=== PATIENT | male | born 1970 | race Caucasian/White ===

== ENCOUNTER 2018-04-09 21:51 | Emergency (ER) | payer OTHER ==
[2018-04-09 22:28] VITALS: BMI 29.8
--- NOTE | 2018-04-09 23:05 | PDOC ---
History of Present Illness - General Chief Complaint: Pain, Acute Stated Complaint: PAIN, ACUTE Time Seen by Provider: 04/09/18 22:45 History Source: Patient Exam Limitations: No Limitations - History of Present Illness Travel History: No Initial Comments: 04/09/18 23:58 The patient is a 47 year old male with a significant PMH of kidney stones, IDDM , and HTN who presents to the emergency department with left flank pain since 9AM. Patient states he initially felt left flank discomfort but has worsened over the course of the day. Patient notes the left flank pain worsened after eating dinner prompting him to come to the ER. Patient reports taking 3 extra strength tylenols. Patient endorses that he has been straining to urinate, and admits to hematuria and urgency. Patient states he has a kidney of left sided kidney stones which required lithotripsy. Patient notes his syptoms feel similar to his kidney stones in the past. Patient follows with Dr. Pompa, urologist. The patient denies chest pain, shortness of breath, headache and dizziness. Denies fever, chills, nausea, vomit, diarrhea and constipation. Endorses hematuria and urgency but denies frequency. Denies testicular pain Allergies: NKA Past surgical history: None reported. Social history: No reported alcohol, drug, or cigarette use. Urologist: Dr. Pompa 10 Past History - Past Medical History Allergies/Adverse Reactions: Allergies Allergy/AdvReac Type Severity Reaction Status Date / Time codeine Allergy Vomiting Verified 04/09/18 22:28 morphine Allergy Vomiting Verified 04/09/18 22:28 Home Medications: Ambulatory Orders Atorvastatin Ca [Lipitor] 10 mg PO HS 04/05/12 Insulin Pump Syringe, 1.8 ml [Fifty50 [place]] 1.7 units SQ 04/05/12 Lisinopril [Prinivil] 5 mg PO DAILY 04/05/12 Nitrofurantoin Macrocrystal [Nitrofurantoin] 100 mg PO BID #14 capsule 11/06/12 Oxycodone HCl/Acetaminophen [Percocet 5-325 mg Tablet] 1 - 2 tab PO Q6H PRN #10 tablet 11/06/12 Tamsulosin HCl 0.4 mg PO DAILY #7 cap.er.24h 11/06/12 Tamsulosin HCl [Flomax] 0.4 mg PO DAILY #7 capsule 04/10/18 Anemia: No Asthma: No Cancer: No Cardiac Disorders: No CVA: No COPD: No CHF: No Dementia: No Diabetes: Yes (IDDM) GI Disorders: No Disorders: No HTN: Yes Hypercholesterolemia: Yes Liver Disease: No Seizures: No Thyroid Disease: No - Surgical History Abdominal Surgery: No Appendectomy: No Cardiac Surgery: No Cholecystectomy: No Lung Surgery: No Neurologic Surgery: No Orthopedic Surgery: Yes (FX LEFT HEAL WITH 4 SCREWS, L ROTATOR CUFF) - Immunization History Immunization Up to Date: No - Suicide/Smoking/Psychosocial Hx Smoking Status: No Smoking History: Never smoked Have you smoked in the past 12 months: No Number of Cigarettes Smoked Daily: 0 Information on smoking cessation initiated: No Hx Alcohol Use: No Drug/Substance Use Hx: No Substance Use Type: None Hx Substance Use Treatment: No Review of Systems - Review of Systems Able to Perform ROS?: Yes Comments:: 04/09/18 23:59 Constitutional - no reported Fever, Chills, HEENT: no reported vision changes, sore throat Respiratory: no reported cough, sob, hemoptysis Cardiac: no reported chest pain, palpitations, light headedness, leg swelling Abd/GI: +L flank pain radiating to groin no reported abd pain, nausea, vomiting , blood per rectum, melena, diarrhea : no reported dysuria, frequency, discharge Musculskelatal - no reported back pain, joint swelling skin - no reported bruising, erythema, rash neurological: no reported headache, numbness, focal weakness, tingling, ataxia, hematologic: no reported easy bruising, easy bleeding *Physical Exam - Vital Signs Last Vital Signs Temp Pulse Resp BP Pulse Ox 98.4 F 101 H 22 H 140/84 100 04/09/18 22:25 04/09/18 22:25 04/09/18 22:25 04/09/18 22:25 04/09/18 22:25 - Physical Exam Comments: 04/09/18 23:59 GENERAL: The patient is awake, alert, and fully oriented, Nontoxic - in no acute distress. HEAD: Normocephalic, atraumatic. EYES: extraocular movements intact, sclera anicteric, conjunctiva clear. ENT: Normal voice, Moist mucous membranes. NECK: Normal range of motion, supple LUNGS: Breath sounds equal, clear to auscultation bilaterally. No wheezes, no rhonchi, no rales. HEART: Regular rate and rhythm, without murmur, rub or gallop. ABDOMEN: Soft, nontender, No guarding, no rebound. No CVA tenderness EXTREMITIES: Normal range of motion, no edema. No clubbing or cyanosis. No cords, erythema, or tenderness. NEUROLOGICAL: No facial assymetry, Normal speech, PSYCH: Normal mood, normal affect. SKIN: Warm, Dry, normal turgor ED Treatment Course - LABORATORY CBC & Chemistry Diagram: 04/09/18 23:20 04/09/18 23:20 Medical Decision Making - Medical Decision Making 04/09/18 23:05 47y M hx of kidney stones, iddm, presenst with L flank pain that gradually worsened. +nausea, no associated fever/chills, vomiting. on exam pt in no distress no cva tendeness abd soft nontender will give toradol will ck basic labs, ua, renal US will dfer CT as pt ahs confirmed kdiney stones recently 04/10/18 02:02 Us shows mild hydronephrosis pt feeling improved labs noted for cr. of 1.5 - will have pt continue to hydrate - wbc noted at 14, without left shift - no signs of fever, or uti on ua = suspect seconary to pain will dc with fu with silva return precautions were discussed I discussed the physical exam findings, ancillary test results and final diagnoses with the patient. I answered all of the patient's questions. The patient was satisfied with the care received and felt comfortable with the discharge plan and treatment plan. The patient will call their primary care physician within 24 hours to arrange follow-up and will return to the Emergency Department with any new, persistent or worsening symptoms. *DC/Admit/Observation/Transfer Diagnosis at time of Disposition: Kidney stone on left side - Discharge Dispostion Disposition: HOME Condition at time of disposition: Improved Decision to Admit order: No - Referrals Referrals: Eb Barth MD [Primary Care Provider] - Toyn Allison MD [Non Staff, Medical] - - Patient Instructions Printed Discharge Instructions: DI for Kidney Stones Additional Instructions: Return to the emergency department immediately with ANY new, persistent or worsening symptoms including worsening pain, inability to tolerate oral intake, fever/chills, or any other concerns. Take the tylenol every 6 hours for the next 2 days. Take flomax daily. Stay well hydrated. You MUST call and follow up with your doctor and urology within 3 days for further evaluation of your symptoms. Your emergency department visit is not complete without a followup with your doctor for reevaluation. Results were discussed with you. Please make sure your doctor reviews the results of your emergency evaluation. Print Language: ARGENTINE - Post Discharge Activity
[2018-04-09] MEDS ORDERED: SODIUM CHLORIDE 1,000 ML IV ONE (23:07)
[2018-04-09] MEDS ORDERED: KETOROLAC TROMETHAMINE 30 MG/1 ML VIAL IVPUSH ONE (23:07)
[2018-04-09] MEDS ORDERED: ONDANSETRON 4 MG/2 ML VIAL IVPB ONE (23:07)
[2018-04-09 23:40] LABS: BASO % 0.5 % (0-2.0); EOS % 4.1 % (0-4.5); HEMOGLOBIN 13.3 GM/dL (11.7-16.9); LYMPH % 14.1 % (8-40); MCH 26.6 pg (25.7-33.7); MCHC 33.3 g/dl (32.0-35.9); MEAN CELL VOLUME 80.1 fl (80-96); MEAN PLT VOLUME 8.4 fl (7.5-11.1); MONO % 5.8 % (3.8-10.2); NEUT % 75.5 % (42.8-82.8); PLATELET COUNT 333 K/MM3 (134-434); RBC 4.99 M/mm3 (4.00-5.60); RDW 12.5 % (11.9-15.9); WHITE BLOOD COUNT 14.5 K/mm3 (4.0-10.0)
[2018-04-09 23:45] LABS: URINE APPEARANCE CLOUDY; URINE BILIRUBIN NEGATIVE (<2.0 mg/dL); URINE COLOR YELLOW; URINE GLUCOSE (UA) 3+ (NEGATIVE); URINE KETONE TRACE (NEGATIVE); URINE LEUK ESTERASE NEGATIVE (NEGATIVE); URINE NITRITE NEGATIVE (NEGATIVE); URINE PROTEIN 2+ (NEGATIVE); URINE UROBILINOGEN NEGATIVE mg/dL (0.2-1.0)
[2018-04-09] MEDS ORDERED: ONDANSETRON 4 MG/2 ML VIAL ONE (23:59)
[2018-04-09] MEDS ORDERED: KETOROLAC TROMETHAMINE 30 MG/1 ML VIAL ONE (23:59)
[2018-04-10] MEDS ORDERED: ONDANSETRON 4 MG/2 ML VIAL ONE
[2018-04-10 00:02] LABS: ALBUMIN 3.9 g/dl (3.4-5.0); ALK PHOS 110 U/L (45-117); ANION GAP 6 MMOL/L (8-16); BILIRUBIN,TOTAL 0.2 mg/dL (0.2-1); BLOOD UREA NITROGEN 24 mg/dL (7-18); CALCIUM 8.7 mg/dL (8.5-10.1); CHLORIDE 106 mmol/L (98-107); CO2 26 mmol/L (21-32); CREATININE 1.5 mg/dL (0.55-1.3); GLUCOSE,RANDOM 107 mg/dL (74-106); SGOT/AST 19 U/L (15-37); SGPT/ALT 34 U/L (13-61); SODIUM 139 mmol/L (136-145); TOT PROT 8.1 g/dl (6.4-8.2)
[2018-04-10 04:39] VITALS: BP 121/71; PULSE 72; TEMP 98
== END 2018-04-10 02:11 | disposition home or self-care (01) ==
LOC: JER 21:51
PROC: 3E0333Z Introduction of Anti-inflammatory into Peripheral Vein, Percutaneous Approach (ICD-10-PCS; principal; 2018-04-09)
PROC: 3E033GC Introduction of Other Therapeutic Substance into Peripheral Vein, Percutaneous Approach (ICD-10-PCS; 2018-04-09)
DX: N13.2 Hydronephrosis with renal and ureteral calculous obstruction (principal); Z87.442 Personal history of urinary calculi; E11.9 Type 2 diabetes mellitus without complications; Z79.4 Long term (current) use of insulin; I10 Essential (primary) hypertension
CPT/HCPCS: 36415; 76775-TC; 80053; 81003; 81015; 85025; 99283-25; J7030

== ENCOUNTER 2019-06-28 16:47 | Emergency (ER) | payer OTHER ==
[2019-06-28 17:03] VITALS: BP 126/62; PULSE 105; BMI 30.9
[2019-06-28] MEDS ORDERED: IBUPROFEN 600 MG TABLET (FP) PO ONE (17:04)
--- NOTE | 2019-06-28 17:04 | PDOC ---
Rapid Medical Evaluation Time Seen by Provider: 06/28/19 16:59 Medical Evaluation: Allergies Allergy/AdvReac Type Severity Reaction Status Date / Time codeine Allergy Vomiting Verified 04/09/18 22:28 morphine Allergy Vomiting Verified 04/09/18 22:28 06/28/19 17:00 I have performed a brief in-person evaluation of this patient. The patient presents with a chief complaint of: nausea, weakness x 2 days, numbness and pain to rt hand Pertinent physical exam findings: slightly tachycardic, 102.0 I have ordered the following:motrin and flu swab The patient will proceed to the ED for further evaluation. Discharge Disposition - Diagnosis Pyelonephritis - Discharge Dispostion Disposition: HOME Condition at time of disposition: Stable - Prescriptions Prescriptions: Cephalexin [Keflex] 500 mg PO BID #20 capsule - Referrals Referrals: Janes Maher MD [Staff Physician] - 2 Days Eb Barth MD [Primary Care Provider] - 2 Days - Patient Instructions Printed Discharge Instructions: DI for Kidney Infection Additional Instructions: Thank you for choosing [facility]. It was a pleasure taking care of you. Please alternate between Tylenol every 4 and Motrin every 6 hours as needed for fever Please antibiotics for urine infection You were referred to urologist for follow-up as well Return to the Emergency Department if your symptoms worsen or persist or have other concerning symptoms. - Post Discharge Activity
[2019-06-28] MEDS ORDERED: ACETAMINOPHEN 325 MG TABLET (FP) PO ONE (17:27)
[2019-06-28] MEDS ORDERED: ACETAMINOPHEN 325 MG TABLET (FP) ONE (17:37)
[2019-06-28 18:42] LABS: EPI CELLS 0 /HPF (0-5/HPF); HYALINE CASTS 2 /lpf (0-8); PH,URINE 7.5 (5.0-8.0); URINE APPEARANCE CLEAR; URINE BACTERIA 3.1 /hpf (NEGATIVE); URINE BILIRUBIN NEGATIVE (NEGATIVE); URINE COLOR YELLOW; URINE GLUCOSE (UA) NEGATIVE (NEGATIVE); URINE KETONE NEGATIVE (NEGATIVE); URINE LEUK ESTERASE 2+ (NEGATIVE); URINE NITRITE NEGATIVE (NEGATIVE); URINE PROTEIN NEGATIVE (NEGATIVE); URINE RBC 3 /hpf (0-4); URINE WBC 135 /hpf (0-5)
[2019-06-28] MEDS ORDERED: CEPHALEXIN MONOHYDRATE 500 MG CAPSULE (UD) PO ONE (19:01)
--- NOTE | 2019-06-28 19:08 | PDOC ---
History of Present Illness - General Chief Complaint: Pain Stated Complaint: R/HAND NUMBNESS/JOINTS PAIN/NAUSEA Time Seen by Provider: 06/28/19 16:59 History Source: Patient Exam Limitations: No Limitations Past History - Past Medical History Allergies/Adverse Reactions: Allergies Allergy/AdvReac Type Severity Reaction Status Date / Time codeine Allergy Vomiting Verified 06/28/19 17:03 morphine Allergy Vomiting Verified 06/28/19 17:03 Home Medications: Ambulatory Orders Atorvastatin Ca [Lipitor] 10 mg PO HS 04/05/12 Insulin Pump Syringe, 1.8 ml [Fifty50 [place]] 1.7 units SQ 04/05/12 Lisinopril [Prinivil] 5 mg PO DAILY 04/05/12 Nitrofurantoin Macrocrystal [Nitrofurantoin] 100 mg PO BID #14 capsule 11/06/12 Oxycodone HCl/Acetaminophen [Percocet 5-325 mg Tablet] 1 - 2 tab PO Q6H PRN #10 tablet 11/06/12 Tamsulosin HCl 0.4 mg PO DAILY #7 cap.er.24h 11/06/12 Tamsulosin HCl [Flomax] 0.4 mg PO DAILY #7 capsule 04/10/18 Cephalexin [Keflex] 500 mg PO BID #20 capsule 06/28/19 Anemia: No Asthma: No Cancer: No Cardiac Disorders: No CVA: No COPD: No CHF: No Dementia: No Diabetes: Yes (IDDM) GI Disorders: No Disorders: No HTN: Yes Hypercholesterolemia: Yes Liver Disease: No Seizures: No Thyroid Disease: No - Surgical History Abdominal Surgery: No Appendectomy: No Cardiac Surgery: Yes Cholecystectomy: No Lung Surgery: No Neurologic Surgery: No Orthopedic Surgery: Yes (FX LEFT HEAL WITH 4 SCREWS, L ROTATOR CUFF) - Immunization History Immunization Up to Date: No - Psycho Social/Smoking Cessation Hx Smoking Status: No Smoking History: Never smoked Have you smoked in the past 12 months: No Number of Cigarettes Smoked Daily: 0 Hx Alcohol Use: No Drug/Substance Use Hx: No Substance Use Type: None Hx Substance Use Treatment: No *Physical Exam - Vital Signs Last Vital Signs Temp Pulse Resp BP Pulse Ox 102.9 F H 105 H 18 126/62 98 06/28/19 16:58 06/28/19 16:58 06/28/19 16:58 06/28/19 16:58 06/28/19 16:58 - Physical Exam General Appearance: No: Apparent Distress HEENT: positive: Normal ENT Inspection Neck: positive: Supple Respiratory/Chest: positive: Lungs Clear, Normal Breath Sounds. negative: Respiratory Distress Cardiovascular: positive: Regular Rhythm, Regular Rate, S1, S2. negative: Murmur Gastrointestinal/Abdominal: positive: Normal Bowel Sounds, Soft. negative: Tender, Distended, Guarding, Rebound Musculoskeletal: negative: CVA Tenderness Integumentary: positive: Normal Color Neurologic: positive: Alert, Normal Mood/Affect ED Treatment Course - ADDITIONAL ORDERS Additional order review: Laboratory Results 06/28/19 18:25 Urine Color Yellow Urine Appearance Clear Urine pH 7.5 D Ur Specific [place] 1.021 Urine Protein Negative Urine Glucose (UA) Negative Urine Ketones Negative Urine Blood Negative Urine Nitrite Negative Urine Bilirubin Negative Urine Urobilinogen 1.0 Ur Leukocyte Esterase 2+ H Urine WBC (Auto) 135 Urine RBC (Auto) 3 Urine Casts (Auto) 2 U Epithel Cells (Auto) 0 Urine Bacteria (Auto) 3.1 - RADIOLOGY Radiology Studies Ordered: Category Date Time Status CHEST PA & LAT [RAD] Stat Radiology 06/28/19 17:47 Taken - Medications Given in the ED: ED Medications Discontinued Medications Generic Name Dose Route Start Last Admin Trade Name Freq PRN Reason Stop Dose Admin Acetaminophen 975 mg 06/28/19 17:27 06/28/19 18:31 Tylenol - PO 06/28/19 17:28 975 mg ONCE ONE Administration Medical Decision Making - Medical Decision Making 48 y/o M hx of HTN, HLD, DM (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 Patient developed fever today. +congestion. Denies cough, ear pain, throat pain, sob, cp, abd pain, n/v/ d. Also mentions noting mild dysuria today. Denies hematuria, rectal pain, unusual penile discharge, groin rash. Denies sick contacts or recent travel. Flu negative CXR negative for PNA UA+ for infection Given febrile with +UA, will treat as possible pyelo D/W Dr. Harman Patient was given Keflex and Tylenol Repeat temp was 99.9 Patient appears well Can f/u with PCP 06/28/19 19:03 Discharge - Discharge Information Problems reviewed: Yes Clinical Impression/Diagnosis: Pyelonephritis Condition: Stable Disposition: HOME - Admission No - Additional Discharge Information Prescriptions: Cephalexin [Keflex] 500 mg PO BID #20 capsule Prescription Drug Monitoring Program (I-STOP) results: I-STOP not reviewed - Follow up/Referral Referrals: Janes Maher MD [Staff Physician] - 2 Days Eb Barth MD [Primary Care Provider] - 2 Days - Patient Discharge Instructions Patient Printed Discharge Instructions: DI for Kidney Infection Additional Instructions: Thank you for choosing [facility]. It was a pleasure taking care of you. Please alternate between Tylenol every 4 and Motrin every 6 hours as needed for fever Please antibiotics for urine infection You were referred to urologist for follow-up as well Return to the Emergency Department if your symptoms worsen or persist or have other concerning symptoms. - Post Discharge Activity
[2019-06-28] MEDS ORDERED: CEPHALEXIN MONOHYDRATE 500 MG CAPSULE (UD) ONE (19:14)
[2019-06-28 19:30] VITALS: TEMP 99.9
== END 2019-06-28 19:37 | disposition home or self-care (01) ==
LOC: JER 16:47
DX: N12 Tubulo-interstitial nephritis, not specified as acute or chronic (principal); N39.0 Urinary tract infection, site not specified; I10 Essential (primary) hypertension; E10.9 Type 1 diabetes mellitus without complications; Z79.4 Long term (current) use of insulin; Z96.41 Presence of insulin pump (external) (internal); E78.5 Hyperlipidemia, unspecified; Z95.2 Presence of prosthetic heart valve; B96.89 Other specified bacterial agents as the cause of diseases classified elsewhere
CPT/HCPCS: 71046-TC-FY; 81003; 87086; 87804; 99282-25

== ENCOUNTER 2021-12-31 10:52 | Emergency (ER) | payer OTHER ==
[2021-12-31 11:09] VITALS: TEMP 97.7; BMI 31.6
[2021-12-31] MEDS ORDERED: MECLIZINE HCL 25 MG TABLET (FP) PO ONE (11:47)
[2021-12-31] MEDS ORDERED: MECLIZINE HCL 25 MG TABLET (FP) ONE (11:53)
[2021-12-31] MEDS ORDERED: SODIUM CHLORIDE 0.9% 500 ML INFUS.BAG IV ONE (11:58)
[2021-12-31] MEDS ORDERED: ONDANSETRON 4 MG/2 ML VIAL IVPUSH ONE (11:58)
[2021-12-31] MEDS ORDERED: ONDANSETRON 4 MG/2 ML VIAL ONE (12:52)
[2021-12-31 13:31] LABS: ALBUMIN 3.9 g/dl (3.4-5.0); CALCIUM 8.9 mg/dL (8.5-10.1)
[2021-12-31 13:35] LABS: BASO % 0.6 % (0-2.0); EOS % 4.8 % (0-4.5); HEMATOCRIT 44.3 % (35.4-49); LYMPH % 20.1 % (8-40); MCH 27.6 pg (25.7-33.7); MEAN CELL VOLUME 81.4 fl (80-96); MEAN PLT VOLUME 8.4 fl (7.5-11.1); MONO % 6.6 % (3.8-10.2); NEUT % 67.9 % (42.8-82.8); PLATELET COUNT 283 10^3/uL (134-434); RBC 5.44 M/mm3 (4.00-5.60); RDW 13.4 % (11.9-15.9)
[2021-12-31 13:36] LABS: BILIRUBIN,TOTAL 0.6 mg/dL (0.2-1)
[2021-12-31 13:37] LABS: CREATININE 0.9 mg/dL (0.55-1.3)
[2021-12-31] MEDS ORDERED: LORazepam 2 MG/ML SDV VIAL IVPUSH ONE (13:41)
[2021-12-31 18:00] VITALS: BP 146/83; PULSE 77
== END 2021-12-31 17:45 | disposition home or self-care (01) ==
LOC: JER 10:52
PROC: 3E033NZ Introduction of Analgesics, Hypnotics, Sedatives into Peripheral Vein, Percutaneous Approach (ICD-10-PCS; principal; 2021-12-31)
PROC: 3E033GC Introduction of Other Therapeutic Substance into Peripheral Vein, Percutaneous Approach (ICD-10-PCS; 2021-12-31)
DX: R55 Syncope and collapse (principal)
CPT/HCPCS: 0241U-QW; 36415; 70450-TC; 70551-TC; 71046-TC-FY; 80053; 84484; 85025; 93005; 93010; 99285-25

== ENCOUNTER 2023-05-23 04:31 | Day surgery (SDC) | payer BC ==
[2023-05-19 10:09] VITALS: BMI 30.5
[2023-05-23] MEDS ORDERED: LIDOCAINE HCL/PF 2% SDV 5ML VIAL ONE (14:06)
[2023-05-23] MEDS ORDERED: PROPOFOL 20 ML ONE (14:06)
[2023-05-23] MEDS ORDERED: FENTANYL CITRATE/PF 50 MCG/ML VIAL ONE (14:07)
[2023-05-23] MEDS ORDERED: MIDAZOLAM HCL 2 MG/2 ML SINGLE DOSE VIAL ONE (14:07)
[2023-05-23] MEDS ORDERED: SCOPOLAMINE HYDROBROMIDE 1 PATCH PATCH.TD72 ONE (15:01)
[2023-05-23] MEDS ORDERED: SCOPOLAMINE HYDROBROMIDE 1 PATCH PATCH.TD72 TD ONE (15:04)
[2023-05-23] MEDS ORDERED: ceFAZolin SODIUM 1 GM VIAL IVPB ONE (16:00)
[2023-05-23] MEDS ORDERED: LIDOCAINE HCL 2% JELLY 11 ML TP ONE (16:02)
[2023-05-23] MEDS ORDERED: ACETAMINOPHEN 500 MG TABLET (FP) PO PRN (16:34)
[2023-05-23] MEDS ORDERED: ONDANSETRON 4 MG/2 ML VIAL IVPUSH PRN (16:34)
[2023-05-23] MEDS ORDERED: IBUPROFEN 800 MG/8 ML IJ IVPB PRN (16:34)
[2023-05-23] MEDS ORDERED: LACTATED RINGERS SOLUTION 1,000 ML IV SCH (16:45)
[2023-05-23] MEDS ORDERED: ACETAMINOPHEN 500 MG TABLET (FP) ONE (18:08)
[2023-05-23 18:13] VITALS: RESP 20; TEMP 96.7
[2023-05-23 18:17] VITALS: BP 127/61; PULSE 58
== END 2023-05-23 18:32 | disposition home or self-care (01) ==
LOC: JASU-SURG 04:31
PROVIDERS: ATTEND Urology
PROC: 0T7D8ZZ Dilation of Urethra, Via Natural or Artificial Opening Endoscopic (ICD-10-PCS; principal; 2023-05-23 14:00)
DX: N13.5 Crossing vessel and stricture of ureter without hydronephrosis (principal)
CPT/HCPCS: 82962; 94760; C1758